=== PATIENT | female | born 1985 | race Caucasian/White ===

== ENCOUNTER 2021-05-01 03:29 | Outpatient (CLI) | payer BC, SELFPAY ==
[2021-05-01 10:24] LABS: HCT 38.9 % (36.0-46.0); MCH 31.8 pg (27.0-33.0); MCHC 33.4 % (32.0-36.0); MCV 95.1 fL (80-95); MPV 9.8 fL (8.0-11.0); Platelet Count 244 10^3/uL (130-400); RBC 4.09 10^6/uL (3.93-5.22); RDW 11.8 % (11.7-14.6); RDW-SD 40.8 fL; WBC 4.07 10^3/uL (4.4-10.8)
[2021-05-01 11:43] LABS: ALT 26 U/L (14-59); AST 23 U/L (15-37); Albumin 4.4 g/dL (3.4-5.0); Alkaline Phosphatase 64 U/L (46-116); Anion Gap 10.1 mmol/L (3-11); BUN 16 mg/dL (7-18); Bilirubin, Total 0.6 mg/dL (0.2-1.0); CO2 27.9 mmol/L (21.0-32.0); CREATININE 0.8 mg/dL (0.55-1.02); Calculated LDL 97 mg/dL (<100); Chloride 101 mmol/L (98-107); Cholesterol 189 mg/dL (<200); Glucose 87 mg/dL (74-106); HDL Cholesterol 81 mg/dL (40-60); Potassium 3.7 mmol/L (3.5-5.1); Sodium 139 mmol/L (136-145); TSH (W/Ref FT4) 5.54 uIU/mL (0.36-3.74); Total Protein 7.5 g/dL (6.4-8.2); Triglyceride 57 mg/dL (<150)
[2021-05-01 12:01] LABS: FREE T4 0.78 ng/dL (0.76-1.46)
[2021-05-01 17:09] LABS: T3,Free 2.8 pg/mL (2.8-5.3)
[2021-05-01 18:26] LABS: Thyroglobulin Antibody 229 U/mL (<=60); Thyroperoxidase Antibody >1300 U/mL (<=60)
[2021-05-08 15:03] LABS: Thyroid Stimulating Immunoglob <1.0 TSI index (<=1.3)
== END 2021-05-01 03:30 | disposition home or self-care (01) ==
LOC: LBO 03:29
PROVIDERS: PCP Student in an Organized Health Care Education/Training Program; Visit Provider Student in an Organized Health Care Education/Training Program
DX: R53.83 Other fatigue (principal); E03.9 Hypothyroidism, unspecified; E86.0 Dehydration; R94.5 Abnormal results of liver function studies; Z13.1 Encounter for screening for diabetes mellitus; Z13.220 Encounter for screening for lipoid disorders
CPT/HCPCS: 36415; 80053; 80061; 85027; 86376; 84439; 84443; 84445; 84481

== ENCOUNTER → 2021-08-07 01:52 | Outpatient (CLI) | payer BC, SELFPAY | PROVIDERS: PCP Student in an Organized Health Care Education/Training Program; Visit Provider Student in an Organized Health Care Education/Training Program ==

== ENCOUNTER 2021-09-04 04:39 | Outpatient (CLI) | payer BC, SELFPAY | END 2021-09-04 04:40 | disposition home or self-care (01) | LOC: LBO 04:39 | PROVIDERS: PCP Student in an Organized Health Care Education/Training Program; Visit Provider Student in an Organized Health Care Education/Training Program ==

== ENCOUNTER 2022-03-22 04:42 | Outpatient (CLI) | payer BC, SELFPAY ==
[2022-03-22 14:13] LABS: TSH (W/Ref FT4) 2.67 uIU/mL (0.36-3.74)
[2022-03-22 22:06] LABS: T3,Free 3.4 pg/mL (2.8-5.3)
== END 2022-03-22 04:43 | disposition home or self-care (01) ==
LOC: LBO 04:42
PROVIDERS: PCP Student in an Organized Health Care Education/Training Program; Visit Provider Student in an Organized Health Care Education/Training Program
DX: E03.9 Hypothyroidism, unspecified (principal); E05.00 Thyrotoxicosis with diffuse goiter without thyrotoxic crisis or storm
CPT/HCPCS: 36415; 84443; 84481

== ENCOUNTER 2024-09-16 09:32 | Outpatient (REF) | payer OTHER, SELFPAY ==
[2024-09-16 16:24] LABS: FREE T4 0.69 ng/dL (0.76-1.46)
== END 2024-09-16 09:33 | disposition home or self-care (01) ==
LOC: NCHCN 09:32
PROVIDERS: PCP Student in an Organized Health Care Education/Training Program; Visit Provider Internal Medicine
DX: Z00.00 Encounter for general adult medical examination without abnormal findings (principal)
CPT/HCPCS: 84439; 84443

== ENCOUNTER 2024-11-05 01:09 | Outpatient (CLI) | payer OTHER, SELFPAY ==
[2024-11-05 09:32] LABS: TSH 3.58 uIU/mL (0.36-3.74)
== END 2024-11-05 01:10 | disposition home or self-care (01) ==
PROVIDERS: PCP Student in an Organized Health Care Education/Training Program; Visit Provider Internal Medicine
DX: E03.9 Hypothyroidism, unspecified (principal)
CPT/HCPCS: 36415; 84443